=== PATIENT | male | born 1985 | race Caucasian/White ===

== ENCOUNTER 2017-07-18 08:15 | Emergency (ER) | payer SELFPAY ==
[2017-07-18] MEDS ORDERED: Sodium Chloride 0.9% 10 ML Syringe FLUSH PRN (08:22)
[2017-07-18] MEDS ORDERED: Labetalol 100 MG/20 ML MDV IVPUSH ONE (08:50)
[2017-07-18] MEDS ORDERED: Labetalol 100 MG/20 ML MDV ONE (08:56)
[2017-07-18] MEDS ORDERED: Sodium Chloride 0.9% 1,000 ML ONE (08:56)
--- NOTE | 2017-07-18 09:11 | EDM.PDOC ---
ED HPI GENERAL MEDICAL PROBLEM - General Chief Complaint: Neuro Symptoms/Deficits Stated Complaint: [facility] Time Seen by Provider: 07/18/17 08:17 Source of Information: Reports: Patient, RN Notes Reviewed - History of Present Illness INITIAL COMMENTS - FREE TEXT/NARRATIVE: 32-year-old male was been brought in by [facility] ambulance with symptoms of acute stroke. He went to bed last evening at around 10:00 feeling normal he awakened this morning about one hour ago with symptoms of "difficulty getting out of bed. He states his left leg is weak and also more severe weakness of his left hand and arm. He also does have speech difficulty. No visual difficulty or diplopia. No headache nausea or vomiting. He does have history of hypertension but states that "I've been off medication for about 18 months". He has no known other known medical problems. No recent illness. ED ROS GENERAL - Review of Systems Review Of Systems: See Below Constitutional: Denies: Fever, Chills HEENT: Denies: Throat Pain, Vertigo, Vision Change Respiratory: Denies: Shortness of Breath, Pleuritic Chest Pain Cardiovascular: Denies: Chest Pain GI/Abdominal: Denies: Abdominal Pain, Nausea, Vomiting Musculoskeletal: Denies: Neck Pain, Back Pain Neurological: Reports: Numbness (Left hand and arm), Trouble Speaking (Slurred speech), Difficulty Walking, Weakness (Fairly severe weakness left hand and arm , mild weakness left lower extremity), Other (Left facial droop). Denies: Headache ED EXAM, NEURO - Physical Exam Exam: See Below General Appearance: Alert, Anxious Eye Exam: Bilateral Eye: PERRL Throat/Mouth: Normal Inspection, Normal Oropharynx Head Exam: Atraumatic. No: Facial Swelling Neck: Supple, Full Range of Motion Respiratory/Chest: No Respiratory Distress, Lungs Clear, Normal Breath Sounds Cardiovascular: Regular Rate, Rhythm GI/Abdominal: Soft, Non-Tender. No: Guarding Neurological: Alert, Oriented x 3, Other (Moderate weakness left hand and arm, patient has slight finger grasp only, unable to hold left hand and arm off of the cot on his own, left facial droop also present, sensation intact to touch left hand and arm and also left foot) Extremities: Normal Inspection, Normal Range of Motion. No: Pedal Edema, Leg Pain Skin Exam: Warm, Dry, Normal Color EKG INTERPRETATION EKG Date: 07/18/17 Rhythm: NSR [place]: Normal P-Wave: Present QRS: Normal Course - Orders/Labs/Meds Orders: Active Orders 24 hr Category Date Time Status EKG 12 Lead [EKG Documentation Completion] [] STAT Care 07/18/17 08:24 Active EKG 12 Lead [EKG Documentation Completion] [] STAT Care 07/18/17 08:26 Active Peripheral IV Care [RC] . DIRECTED Care 07/18/17 08:25 Active Head wo Cont [CT] Routine Exams 07/18/17 08:29 Taken Sodium Chloride 0.9% [Saline Flush] Med 07/18/17 08:22 Active 10 ml FLUSH ASDIRECTED PRN Peripheral IV Insertion Adult [OM.PC] Stat Oth 07/18/17 08:24 Ordered Medication Orders Sodium Chloride (Saline Flush) 10 ml FLUSH ASDIRECTED PRN PRN Reason: Keep Vein Open Labs: Laboratory Tests 07/18/17 07/18/17 07/18/17 Range/Units 08:20 08:20 08:20 WBC 8.53 (4.23-9.07) K/mm3 RBC 5.71 (4.63-6.08) M/mm3 Hgb 16.8 (13.7-17.5) gm/L Hct 48.1 (40.1-51.0) % MCV 84.2 (79.0-92.2) fl MCH 29.4 (25.7-32.2) pg MCHC 34.9 (32.2-35.5) g/dl RDW Std Deviation 38.3 (35.1-43.9) fL Plt Count 384 H (163-337) K/mm3 MPV 9.7 (9.4-12.3) fl Neut % (Auto) 56.0 (34.0-67.9) % Lymph % (Auto) 28.4 (21.8-53.1) % [place] % (Auto) 9.8 (5.3-12.2) % Eos % (Auto) 4.5 (0.8-7.0) Baso % (Auto) 0.8 (0.1-1.2) % Neut # (Auto) 4.78 (1.78-5.38) K/mm3 Lymph # (Auto) 2.42 (1.32-3.57) K/mm3 [place] # (Auto) 0.84 H (0.30-0.82) K/mm3 Eos # (Auto) 0.38 (0.04-0.54) K/mm3 Baso # (Auto) 0.07 (0.01-0.08) K/mm3 PT 10.4 (8.0-13.0) SECONDS INR 0.96 APTT 26 (22-36) SECONDS Sodium 142 (136-145) mEq/L Potassium 3.2 L (3.5-5.1) mEq/L Chloride 105 (98-107) mEq/L Carbon Dioxide 28 (21-32) mEq/L Anion Gap 12.2 (5-15) BUN 11 (7-18) mg/dL Creatinine 0.9 (0.7-1.3) mg/dL Est Cr Clr Drug Dosing TNP Estimated GFR (MDRD) > 60 (>60) mL/min BUN/Creatinine Ratio 12.2 L (14-18) Glucose 97 (74-106) mg/dL POC Glucose (70-105) mg/dL Calcium 9.1 (8.5-10.1) mg/dL Total Bilirubin 0.6 (0.2-1.0) mg/dL AST 35 (15-37) U/L ALT 67 H (16-63) U/L Alkaline Phosphatase 98 (46-116) U/L Total Protein 8.2 (6.4-8.2) g/dl Albumin 4.2 (3.4-5.0) g/dl Globulin 4.0 gm/dL Albumin/Globulin Ratio 1.1 (1-2) 07/18/17 Range/Units 08:22 WBC (4.23-9.07) K/mm3 RBC (4.63-6.08) M/mm3 Hgb (13.7-17.5) gm/L Hct (40.1-51.0) % MCV (79.0-92.2) fl MCH (25.7-32.2) pg MCHC (32.2-35.5) g/dl RDW Std Deviation (35.1-43.9) fL Plt Count (163-337) K/mm3 MPV (9.4-12.3) fl Neut % (Auto) (34.0-67.9) % Lymph % (Auto) (21.8-53.1) % [place] % (Auto) (5.3-12.2) % Eos % (Auto) (0.8-7.0) Baso % (Auto) (0.1-1.2) % Neut # (Auto) (1.78-5.38) K/mm3 Lymph # (Auto) (1.32-3.57) K/mm3 [place] # (Auto) (0.30-0.82) K/mm3 Eos # (Auto) (0.04-0.54) K/mm3 Baso # (Auto) (0.01-0.08) K/mm3 PT (8.0-13.0) SECONDS INR APTT (22-36) SECONDS Sodium (136-145) mEq/L Potassium (3.5-5.1) mEq/L Chloride (98-107) mEq/L Carbon Dioxide (21-32) mEq/L Anion Gap (5-15) BUN (7-18) mg/dL Creatinine (0.7-1.3) mg/dL Est Cr Clr Drug Dosing Estimated GFR (MDRD) (>60) mL/min BUN/Creatinine Ratio (14-18) Glucose (74-106) mg/dL POC Glucose 93 (70-105) mg/dL Calcium (8.5-10.1) mg/dL Total Bilirubin (0.2-1.0) mg/dL AST (15-37) U/L ALT (16-63) U/L Alkaline Phosphatase (46-116) U/L Total Protein (6.4-8.2) g/dl Albumin (3.4-5.0) g/dl Globulin gm/dL Albumin/Globulin Ratio (1-2) Meds: Medications Generic Name Dose Route Start Last Admin Trade Name Freq PRN Reason Stop Dose Admin Sodium Chloride 10 ml 07/18/17 08:22 Saline Flush FLUSH ASDIRECTED PRN Keep Vein Open Discontinued Medications Generic Name Dose Route Start Last Admin Trade Name Freq PRN Reason Stop Dose Admin Sodium Chloride Confirm 07/18/17 08:56 Normal Saline Administered 07/18/17 08:57 Dose 1,000 mls @ as directed .ROUTE .[facility] Labetalol HCl Confirm 07/18/17 08:56 Normodyne Administered 07/18/17 08:57 Dose 100 mg .ROUTE .[facility] ONE - Re-Assessments/Exams Free Text/Narrative Re-Assessment/Exam: 07/18/17 09:15. This was called as a stroke alert on patient arrival. I did see patient on arrival. He did have the findings of quite severe left upper extremity weakness as documented, left facial droop, continued slurred speech. We did get a CT scan as soon as possible which shows no hemorrhage. We have transferred him to [facility]. I did visit with Dr. Coronado, Neurologist who does accept patient in transfer. His blood pressure was very elevated on arrival in the 240/140 range. It then did come down as low as 198/127. Just prior to discharge it was back up to 228 systolic over 126. Therefore we did give labetalol 20 mg IV. We were advised to work to keep the systolic blood pressure less than 220 and that information has been relayed to flight crew. Keep head of his bed elevated 30 and run normal saline at 100 per hour. Departure - Departure Time of Disposition: 08:45 Disposition: DC/Tfer to Acute Hospital 02 Condition: Fair Clinical Impression: CVA (cerebral vascular accident) Qualifiers: CVA mechanism: unspecified Qualified Code(s): I63.9 - Cerebral infarction, unspecified Hypertension Qualifiers: Hypertension type: essential hypertension Qualified Code(s): I10 - Essential ( primary) hypertension - Discharge Information Referrals: PCP,None [Primary Care Provider] - Forms: ED Department Discharge - My Orders Last 24 Hours: My Active Orders 07/18/17 08:22 Sodium Chloride 0.9% [Saline Flush] 10 ml FLUSH ASDIRECTED PRN 07/18/17 08:24 EKG 12 Lead [EKG Documentation Completion] [RC] STAT Peripheral IV Insertion Adult [OM.PC] Stat 07/18/17 08:25 Peripheral IV Care [RC] . DIRECTED 07/18/17 08:26 EKG 12 Lead [EKG Documentation Completion] [RC] STAT 07/18/17 08:29 Head wo Cont [CT] Routine - Assessment/Plan Last 24 Hours: My Active Orders 07/18/17 08:22 Sodium Chloride 0.9% [Saline Flush] 10 ml FLUSH ASDIRECTED PRN 07/18/17 08:24 EKG 12 Lead [EKG Documentation Completion] [RC] STAT Peripheral IV Insertion Adult [OM.PC] Stat 07/18/17 08:25 Peripheral IV Care [RC] . DIRECTED 07/18/17 08:26 EKG 12 Lead [EKG Documentation Completion] [] STAT 07/18/17 08:29 Head wo Cont [CT] Routine
--- NOTE | 2017-07-18 10:03 | CT ---
Head CT Technique: Multiple axial sections through the brain were obtained. Intravenous contrast was not utilized. Comparison: No previous intracranial imaging. Findings: Lateral ventricles are mildly asymmetric in size which is a normal variant. Sulci over the convexities are normal. No abnormal parenchymal densities are seen. No evidence of intracranial hemorrhage. No midline shift or mass effect is seen. Bone window settings were reviewed which show no acute calvarial abnormality. Visualized sinuses are clear. Impression: 1. No acute intracranial abnormality is seen on noncontrast head CT study. Diagnostic code #1 Agree with preliminary report issued by [facility] (preliminary report finalized on 07/18/17, 9:54 AM Central Time)
== END 2017-07-18 09:17 ==
LOC: JD.ED 08:15
DX: I63.9 Cerebral infarction, unspecified (principal); I10 Essential (primary) hypertension
CPT/HCPCS: 36415; 70450; 70450-26; 80053; 82962; 85025; 85610; 85730; 93005; 93010; 96374; 99285; 99285-25

== ENCOUNTER 2022-08-02 17:38 | Emergency (ER) | payer SELFPAY | END 2022-08-02 19:00 | disposition left against medical advice (07) | LOC: JD.ED 17:38 | DX: Z53.21 Procedure and treatment not carried out due to patient leaving prior to being seen by health care provider (principal) ==

== ENCOUNTER 2023-10-24 02:42 | Emergency (ER) | payer MEDICARE, MEDICAID | END 2023-10-24 04:07 | disposition home or self-care (01) | LOC: JD.ED 02:42 | DX: Z00.01 Encounter for general adult medical examination with abnormal findings (principal); I10 Essential (primary) hypertension; Z79.899 Other long term (current) drug therapy | CPT/HCPCS: 93005; 99283 ==

== ENCOUNTER 2024-09-26 01:49 | Emergency (ER) | payer MEDICARE, MEDICAID ==
[2024-09-26 02:56] LABS: BASOPHILS ABSOLUTE AUTO 0.1 K/mm3 (0.0-0.2); BASOPHILS PERCENT AUTO 0.9 % (0.0-1.0); EOSINOPHILS ABSOLUTE AUTO 0.2 K/mm3 (0.0-0.4); EOSINOPHILS PERCENT AUTO 2.9 % (0.0-6.0); HEMATOCRIT 41.9 % (42.0-52.0); HEMOGLOBIN 14.4 gm/dl (14.0-18.0); IMMATURE GRAN ABSOLUTE AUTO 0.03 K/mm3 (0.00-0.05); IMMATURE GRAN PERCENT AUTO 0.4 % (0.0-0.4); LYMPHOCYTES ABSOLUTE AUTO 2.8 K/mm3 (1.0-4.8); LYMPHOCYTES PERCENT AUTO 34.5 % (24.0-44.0); MEAN CORPUSCULAR HEMOGLOBIN 29.8 pg (28.0-32.0); MEAN CORPUSCULAR HGB CONC 34.4 g/dl (32.0-36.0); MEAN CORPUSCULAR VOLUME 86.7 fl (83.0-99.0); MEAN PLATELET VOLUME 9.3 fl (9.4-12.4); MONOCYTES PERCENT AUTO 11.7 % (0.0-8.0); NEUTROPHILS ABSOLUTE AUTO 4.1 K/mm3 (1.8-7.7); NEUTROPHILS PERCENT AUTO 49.6 % (41.0-71.0); PLATELET COUNT,PLT 327 K/mm3 (150-400); RED BLOOD CELL COUNT 4.83 M/mm3 (4.52-5.90); WHITE BLOOD CELL COUNT,WBC 8.22 K/mm3 (3.9-11.3)
[2024-09-26 03:33] LABS: A/G RATIO 1.2 (1-2); ANION GAP 16.2 (5-15); BILIRUBIN TOTAL 0.4 mg/dL (0.2-1.0); BUN/CREATININE RATIO 12.2 (14-18); CREATININE 0.9 mg/dL (0.7-1.3); EST CRCL DRUG DOSING (CG) 91.36 mL/min; POTASSIUM,K 4.2 mEq/L (3.5-5.1); PROTEIN TOTAL,TP 7.4 g/dl (6.4-8.2)
== END 2024-09-26 05:09 | disposition home or self-care (01) ==
LOC: JD.ED 01:49
DX: R20.2 Paresthesia of skin (principal); I10 Essential (primary) hypertension; Z86.73 Personal history of transient ischemic attack (TIA), and cerebral infarction without residual deficits; Z79.899 Other long term (current) drug therapy
CPT/HCPCS: 36415; 70450; 70450-26; 80053; 83735; 84484; 85025; 93005; 93010; 99283; 99284